=== PATIENT | female | born 1995 | race Caucasian/White ===

== ENCOUNTER 2016-05-01 21:02 | Observation (INO) ==
[2016-05-01 21:38] VITALS: BP 119/70
[2016-05-01 21:50] LABS: Bilirubin,Urine Negative (Negative); Blood,Urine Negative (Negative); Color,Urine Yellow (Yellow); Glucose,Urine (UA) Normal (Normal); Ketones,Urine Negative (Negative); Leukocyte Esterase,Urine Negative (Negative); Nitrite,Urine Negative (Negative); Protein,Urine Negative (Neg-Trace); Specific Gravity,Urine 1.009 (1.010-1.025); Urobilinogen,Urine Normal (Normal)
[2016-05-01 21:52] LABS: Clarity,Urine Clear (Clear)
--- NOTE | 2016-05-01 21:59 | OB/GYN Progress Note ---
Date of Encounter: 05/01/16 Time of Encounter: 21:49 - Assessment and Plan (1) 36 weeks gestation of Current Visit: Yes Status: Acute contractions 8-9mins - nitrazine, 0 cervical dilation recheck for cervical dilation in 1-2h (2) contractions Current Visit: Yes Status: Acute contractions 8-9mins - nitrazine, 0 cervical dilation, denies loss of fluids, mucous plug or vaginal bleeding continuous monitoring pt monitoring recheck for cervical dilation in 1-2h Subjective - Subjective Principal diagnosis: contractions Interval history: 20 yo F 001 at 36.4weeks VAUGHN 05/25/16 Dr. Castillo pt c/o non painful contractions which started Friday afternoon. At that time contractions were infrequent and irregular but now have increased in frequency occurring approximately every 10-12 minutes. pt states that movement is normal. Pt states that she has not had any loss of fluids, vaginal discharge or bleeding. Pt denies headache, change in vision, SOB, CP,palpitation, N/V, LE edema, urinary hesitency, frequency, urgency or burning. O+ Rubella + HepB NR TPallidum - Antepartum ROS: contractions Objective - Vital Signs Vital Signs: Vital Signs Temp Pulse Resp BP 05/01/16 21:30 97.5 F L 72 16 119/70 Intake and Output 05/01/16 05/01/16 05/01/16 07:59 15:59 23:59 Other: Weight 68.2 kg Patient Weight 05/01/16 23:59 Weight 68.2 kg - Exam FHR: auscultation normal Auscultation: bilateral: normal Abdomen: Present: normal appearance, soft, gravid. Absent: distention, tenderness Uterus: Present: normal Cervical dilation: 0
== END 2016-05-01 22:33 | disposition home or self-care (01) ==
LOC: 1NENULAB
PROVIDERS: ADMIT Obstetrics & Gynecology; ATTEND Obstetrics & Gynecology

== ENCOUNTER 2016-05-19 03:04 | Inpatient (IN) ==
[~2016-05-19 03:04] MED LIST: Famotidine 20 MG/2 ML VIAL IVP PRN; Metoclopramide 10 MG/2 ML VIAL IVP PRN; Naloxone 0.4 MG/ML INJ IVP PRN; Oxytocin 20 units/ LR 1000 mL 20 UNIT/1,000 ML BAG IVC SCH
[2016-05-19] MEDS ORDERED: Ringers Solution, Lactated 1,000 ML IVC SCH (03:15)
[2016-05-19 03:34] LABS: Basophils % 0.2 %; Eosinophils # 0.1 K/mcL (0.0-0.6); Eosinophils % 0.6 %; Hematocrit 37.6 % (35.3-44.9); Immature Granulocytes % 0.7 % (0-4); Lymphocytes # 3.1 K/mcL (0.6-4.6); Lymphocytes % 29.2 %; Mean Corpuscular HGB Conc 34.6 g/dL (31.6-35.5); Mean Corpuscular Hemoglobin 31.3 pg (28.0-33.3); Mean Corpuscular Volume 90.6 fL (83.0-100.0); Mean Platelet Volume 10.5 fL (9.4-12.4); Monocytes # 0.6 K/mcL (0.0-1.3); Monocytes % 5.9 %; Neutrophils # 6.7 K/mcL (1.6-8.9); Platelet Count 169 K/mcL (140-400); Red Blood Count 4.15 M/mcL (3.82-4.97); Red Cell Distribution Width 13.2 % (11.5-14.5); Segmented Neutrophils % 63.4 %
[2016-05-19] MEDS ORDERED: Famotidine 20 MG/2 ML VIAL IVP ONE (04:19)
--- NOTE | 2016-05-19 07:36 | Anesthesia Evaluation PreOp ---
Date of Encounter: 05/19/16 Time of Encounter: 07:34 - Past History Planned Operation: la nena Cardiac History: Denies any Significant Hx Pulmonary History: Denies Any Significant HX CIVIL MANAGER History: Denies Any Significant HX Other Medical History: GERD (treated with zantac) Anesthesia History: No Prior Anesthetic Complications (no prior anesthetics, no family history of anesthesia complications) : Yes (39 weeks, ) Alcohol Use: none Drug use: none Medications and Allergies Colace 100 mg PO DAILY 05/01/16 [History] Tablet 1 tab PO DAILY 05/01/16 [History] Ranitidine HCl 05/01/16 [History] Allergies No Known Allergies Allergy (Verified 05/19/16 00:48) - Meds/Allergy Pre-op Review Medications Reviewed: Yes Allergies Reviewed: Yes Beta Blockers on Current Med List: No Anesthesia Results - Labs 05/19/16 03:25 Anesthesia Exam O2 Sat Height 1.68 m Weight 68 kg Height: 66 Weight: 68 - HEENT Pupil (Motor): Pupils equal Mallampati: II Teeth: Normal Oral Opening: Greater than 3 - CIVIL MANAGER LOC: Oriented CIVIL MANAGER Motor: Normal RUE, Normal LUE, Normal RLE, Normal LLE, Normal Face CIVIL MANAGER Sensory: Normal: RUE, LUE, RLE, LLE, Face - Cardiac Rhythm: Regular Murmur: None JVD: No Carotid Bruit: No - Pulmonary Breath Sounds: bilateral Clear Respiratory Effort: Symmetrical Anesthesia Assess/Plan ASA Score: 2 Modified [place] Scale for Level of Consciousness: Cooperative, oriented, and tranquil Anesthetic Plan: Regional Monitoring Plan: Standard Monitors
[2016-05-19] MEDS ORDERED: *HR* FentaNYL (PF) 100 MCG/2 ML VIAL ONE (10:52)
[2016-05-19] MEDS ORDERED: *HR* Ropivacaine/PF 0.2% 10 ML AMPUL ONE (10:53)
[2016-05-19] MEDS ORDERED: Epidural Premix (fent/bupiv) 110 ML EP ONE (10:53)
--- NOTE | 2016-05-19 11:16 | Anesthesia Procedures ---
Date of Encounter: 05/19/16 Time of Encounter: 11:14 Procedures: Anesthesia - Epidural/Spinal Patient ID/Chart reviewed: Yes Patient examined: Yes OB Eval: Gestational age: 39 OB Eval: : 2 OB Eval: Hx Para: 1 OB Eval: Dilated at (cm): 5 OB Eval: Contractions: Non-stressed pattern Consent Obtained: Yes Supplemental Oxygen: None/Room Air Site Prep: Aseptic Technique Patient position: upright Local Anesthetic: Lidocaine 1% Amount of Local Anesthetic used: 3 Touhy Needle Gauge: 18 Touhy Needle Depth (cm): 4 Catheter Depth at Skin (cm): 11 Test Dose (1.5% Lido + Epi): Volume given (mls): 3 Test Dose Result: Negative Loading Dose: Fentanyl (mcg): 100 Loading Dose: Other: 5ml 0.2% ropivicaine, 3ml nss Loading Dose Administered: Thru Touhy Needle Infusion Med: 0.125% Bupivacaine w/ 2 mcg/ml Fentanyl Infusion Rate (mls/hr): [address]: Tegaderm Interspace Used: L2-L3 Loss of Resistance (LUMA): Yes Blood: No CSF: No Paresthesia: No Procedure: Tolerated well. Strict asepsis with good LUMA on first pass. Bolus thru needle , test dose thru catheter. Vitals + FHT's: BP post procedure 132/77 HR 60 RR 20
--- NOTE | 2016-05-19 11:32 | OB Labor Progress Note ---
Date of Encounter: 05/19/16 Time of Encounter: 11:31 Labor Progress Note - Subjective Subjective: Pt. comfortable with epidural. - Cervix Cervix: 4/80%/VTX/0 - Heart Tones Heart Tones: Reactive FHR. + scalp stim. - Wilkinson Wilkinson: contractions every 3-5 minutes. - Interventions Interventions: AROM with large amount of clear fluid. IUPC inserted without difficulty.
[2016-05-19] MEDS ORDERED: Lidocaine 1% 20 ML MDV ONE (12:49)
--- NOTE | 2016-05-19 13:14 | OB/GYN History & Physical ---
Date of Encounter: 05/19/16 Time of Encounter: 13:12 Assessment and Plan (1) 39 weeks gestation of Current visit: Yes Status: Acute (2) Rh negative status during in third trimester Current visit: Yes Status: Acute (3) Active labor at term Current visit: Yes Status: Acute History of Present Illness HPI: Ms. Queen is a 21 year old female with an EDC 05/25/16 at 39 weeks and 1 day with history of contractions since 1730 last pm. Pt. states contractions became more regular and uncomfortable around 2200 hours, and arrived to L&D around 0030 hours. Denies any vaginal bleeding or leakage of fluid. PN course significant for Rh negative, GBS negative, Rubella immune. Pt. originally scheduled for induction 05/22/16. Past Med Surg Social Fam HX - Past Medical History Medical history: no medical history Psychiatric history: no psych history - Past Surgical History Surgical History: other - Social History Smoking Status: Never smoker Smokeless Tobacco Status: No Alcohol use: none Drug use: none - Family History Mother Living Status: Still Living Hx Family Cardiac Disorders: No Hx Family Respiratory Disorders: No Hx Family Cancer: No Hx Family GI Disorders: No Hx Family Endocrine Disorder: No Hx Family Neuromuscular Disorders: No Hx Family Neurologic Disorders: No Hx Family HEENT Disorders: No Hx Family Autoimmune Disorders: No Obstetrical History - Pregnancies : 2 Para: 1 Livin Medications and Allergies Colace 100 mg PO DAILY 05/01/16 [History] Tablet 1 tab PO DAILY 05/01/16 [History] Ranitidine HCl 05/01/16 [History] Allergies No Known Allergies Allergy (Verified 05/19/16 00:48) Exam - Constitutional Constitutional: well developed, well nourished - Neck Neck exam: normal inspection - Abdomen Abdomen: Present: gravid, non tender - Extremities Extremities exam: normal inspection - Cervix Dilation: 4 Effacement: 80 Station: 0 - Comments Comments: Physical exam performed at time of SVE, AROM. Results Result Diagrams: 05/19/16 03:25 All other labs normal. - VTE Reasons for not Prescribing Prophylaxis: Treatment not Indicated - Low risk for VTE
--- NOTE | 2016-05-19 13:20 | OB/GYN Procedure Note ---
Delivery - Delivery Date: 05/19/16 Provider: Katy Mcclure Intrapartum events: none Delivery augmentation: rupture of membranes, pitocin Delivery monitor: external FHT, external uterine, internal uterine Anesthesia: epidural Estimated Blood Loss: 250 - (s) Infant A Delivery Date: 05/19/16 Infant Delivery Time: 12:47 Presentation: vertex Position: JAYANT Route of delivery: Gender: Female Viability: Viable Pounds: 6 Ounces: 8 Weight Gram: 2945 kg at 1 minute: 8 at 5 mins: 9 Shoulder Dystocia: not encountered Specimens collected: cord blood Placenta: spontaneous Cord: 3 umbilical vessels - Repair Episiotomy: none Laceration Description: Labial - Complications Delivery complications: none - Disposition Mom disposition: stable in LDR [place] disposition: stable in LDR - Comments Comments: Patient progressed to complete dilatation and had spontaneous vaginal delivery of a viable female . scores were 8 and 9 at one and 5 minutes respectively, and the infant weighed 6 lbs. 8 oz. The placenta delivered spontaneously and appeared to be intact. Bilateral labial lacerations were present. The left was very superficial however the right was repaired with 4-0 Vicryl suture. All sponge needle and instrument counts reported correct. Estimated blood loss 250 mL. No shoulder dystocia was encountered, no nuchal cord was present.
[2016-05-19] MEDS ORDERED: Oxytocin 20 units/ LR 1000 mL 20 UNIT/1,000 ML BAG IV SCH (15:32)
[2016-05-19] MEDS ORDERED: Oxytocin 20 units/ LR 1000 mL 20 UNIT/1,000 ML BAG IVC ONE (15:32)
[2016-05-19] MEDS ORDERED: Acetaminophen 325 MG TABLET PO PRN (15:32)
[2016-05-19] MEDS ORDERED: Rho Immune Globulin 1,500 UNIT SYRINGE IM PRN (15:32)
[2016-05-19] MEDS: Ibuprofen 600 MG TABLET PO PRN ×2 (17:25→23:38)
[2016-05-20 06:11] LABS: Basophils % 0.3 %; Eosinophils # 0.2 K/mcL (0.0-0.6); Eosinophils % 1.4 %; Hematocrit 33.9 % (35.3-44.9); Hemoglobin 11.5 g/dL (11.5-15.4); Immature Granulocytes % 0.7 % (0-4); Lymphocytes # 2.6 K/mcL (0.6-4.6); Lymphocytes % 23.5 %; Mean Corpuscular HGB Conc 33.9 g/dL (31.6-35.5); Mean Corpuscular Hemoglobin 31.9 pg (28.0-33.3); Mean Corpuscular Volume 94.2 fL (83.0-100.0); Mean Platelet Volume 10.5 fL (9.4-12.4); Monocytes # 0.7 K/mcL (0.0-1.3); Monocytes % 6.4 %; Neutrophils # 7.5 K/mcL (1.6-8.9); Platelet Count 140 K/mcL (140-400); Red Cell Distribution Width 13.3 % (11.5-14.5); Segmented Neutrophils % 67.7 %
[2016-05-20] MEDS: Ibuprofen 600 MG TABLET PO PRN (08:01)
[2016-05-20 08:31] VITALS: BP 113/71
--- NOTE | 2016-05-20 08:36 | Discharge Summary ---
Date of Encounter: 05/20/16 Time of Encounter: 08:33 - Discharge Diagnosis (1) Vaginal delivery Priority: Primary Status: Acute Comments: Pt states feels well and would like to be discharged today. Meeting all PP milestones. - Discharge Medications Prescriptions: Ibuprofen [Motrin] 600 mg PO Q6HR PRN #60 tablet PRN Reason: Cramping Breast Pump [BREAST PUMP] 1 each .ROUTE AD #1 each Docusate [Colace] 100 mg PO BID #60 capsule Home Medications: Tablet 1 tab PO DAILY 05/01/16 [History] Ranitidine HCl 05/01/16 [History] Breast Pump [BREAST PUMP] 1 each .ROUTE AD #1 each 05/20/16 [Rx] Docusate [Colace] 100 mg PO BID #60 capsule 05/20/16 [Rx] Ibuprofen [Motrin] 600 mg PO Q6HR PRN #60 tablet 05/20/16 [Rx] Vit/FA 1 each PO DAILY tablet 05/20/16 [Rx] Allergies/Adverse Reactions: Allergies No Known Allergies Allergy (Verified 05/19/16 00:48) Data Procedures and tests throughout hospitalization: Laboratory Tests 05/19/16 05/19/16 05/20/16 03:25 13:26 05:39 WBC 10.6 11.1 RBC 4.15 3.60 L Hgb 13.0 11.5 D Hct 37.6 33.9 L MCV 90.6 94.2 MCH 31.3 31.9 MCHC 34.6 33.9 RDW 13.2 13.3 Plt Count 169 140 MPV 10.5 10.5 Immature Gran % 0.7 0.7 Seg Neutrophils % 63.4 67.7 Lymphocytes % 29.2 23.5 Monocytes % 5.9 6.4 Eosinophils % 0.6 1.4 Basophils % 0.2 0.3 Neutrophils # 6.7 7.5 Lymphocytes # 3.1 2.6 Monocytes # 0.6 0.7 Eosinophils # 0.1 0.2 Basophils # 0.0 0.0 Screen NEGATIVE Baby's Blood Type A RH POSITIVE Mother's Blood Type O RH NEGATIVE Rhogam Indicated YES Rhogam Req for Mother 1 Labs on day of discharge: Labs from last 24 hours 05/20/16 05/19/16 05:39 13:26 WBC 11.1 RBC 3.60 L Hgb 11.5 D Hct 33.9 L MCV 94.2 MCH 31.9 MCHC 33.9 RDW 13.3 Plt Count 140 MPV 10.5 Immature Gran % 0.7 Seg Neutrophils % 67.7 Lymphocytes % 23.5 Monocytes % 6.4 Eosinophils % 1.4 Basophils % 0.3 Neutrophils # 7.5 Lymphocytes # 2.6 Monocytes # 0.7 Eosinophils # 0.2 Basophils # 0.0 Screen NEGATIVE Baby's Blood Type A RH POSITIVE Mother's Blood Type O RH NEGATIVE Rhogam Indicated YES Rhogam Req for Mother 1 Date of admission: 05/19/16 03:04 Consults: 05/19/16 15:32 Consult to Nurse Private Duty [CONS] Routine Comment: Vaginal delivery, consult needed Discharging clinician: Paulina Bates Anticipated date of discharge: 05/20/16 - Patient Status Disposition: Home, Self-Care Condition: Good Functional capacity at discharge: independent ambulation Overall status at discharge: patient is back to baseline - Discharge Instructions Follow Up With: Catrachita Castillo DO [Partnered Physician] - (June 20, 2016 @ 2:30 pm) - Diet and Activity Activity: resume usual activities as tolerated Diet: regular diet Hospital Course Reason for admission: active labor Delivery: Episiotomy: none Laceration: other (labial) complications: none Discharge diagnosis: IUP at term delivered [place] baby: female Hospital course: Delivery - Delivery Date: 05/19/16 Provider: Katy Mcclure Intrapartum events: none Delivery augmentation: rupture of membranes, pitocin Delivery monitor: external FHT, external uterine, internal uterine Anesthesia: epidural Estimated Blood Loss: 250 - (s) Infant A Infant Delivery Date: 05/19/16 Delivery Time: 12:47 Presentation: vertex Position: JAYANT Route of delivery: Gender: Female Viability: Viable Pounds: 6 Ounces: 8 Weight Gram: 2945 kg at 1 minute: 8 at 5 mins: 9 Shoulder Dystocia: not encountered Specimens collected: cord blood Placenta: spontaneous Cord: 3 umbilical vessels - Repair Episiotomy: none Laceration Description: Labial - Complications Delivery complications: none - Disposition Mom disposition: stable in and appropriate for discharge - Comments Time Attestation: Total time spent providing and/or coordinating discharge services: Time Spent: Less than 30 minutes Exam - Constitutional Vitals: Temp Pulse Resp BP Pulse Ox 97.6 F 71 16 113/71 97 05/20/16 08:27 05/20/16 08:27 05/20/16 08:27 05/20/16 08:27 05/20/16 08:27 General appearance IM: A&O X 3, no acute distress - Respiratory Respiratory exam: Present: CTAB - Cardiovascular Cardiovascular exam IM: Present: RRR, +S1, +S2 - GI/Abdominal GI/Abdominal exam IM: normal bowel sounds, soft - Uterine Tone: Firm - Extremities Exam Extremities exam IM: Present: normal inspection - Neurological Exam Neurological exam: alert, normal gait, oriented X3 - Psychiatric Additional comments: reports good mood.
[2016-05-20] MEDS ORDERED: Prenatal Vit/FA 1 EACH TABLET PO SCH (09:00)
== END 2016-05-20 14:37 | disposition home or self-care (01) | DRG 775 ==
LOC: 1NENULAB → 1NENUOBS 15:30
PROVIDERS: ADMIT Obstetrics & Gynecology; ATTEND Obstetrics & Gynecology

== ENCOUNTER 2019-03-27 05:30 | Inpatient (IN) ==
[2019-03-27] MEDS ORDERED: Ringers Solution, Lactated 1,000 ML IVC ONE (06:05)
[2019-03-27 06:18] LABS: Basophils % 0.3 %; Eosinophils # 0.1 K/mcL (0.0-0.6); Hematocrit 33.7 % (35.3-44.9); Hemoglobin 12.3 g/dL (11.5-15.4); Immature Granulocytes % 0.3 % (0-4); Lymphocytes # 1.7 K/mcL (0.6-4.6); Mean Corpuscular HGB Conc 36.5 g/dL (31.6-35.5); Mean Corpuscular Volume 84.9 fL (83.0-100.0); Mean Platelet Volume 9.5 fL (9.4-12.4); Monocytes # 0.4 K/mcL (0.0-1.3); Monocytes % 6.5 %; Neutrophils # 3.8 K/mcL (1.6-8.9); Platelet Count 195 K/mcL (140-400); Red Blood Count 3.97 M/mcL (3.82-4.97); Red Cell Distribution Width 11.8 % (11.5-14.5); Segmented Neutrophils % 62.9 %
[2019-03-27] MEDS ORDERED: *HR* FentaNYL (PF) 100 MCG/2 ML VIAL ONE (07:25)
[2019-03-27] MEDS ORDERED: Dexamethasone 4 MG/ML VIAL ONE (07:25)
[2019-03-27] MEDS ORDERED: *HR* Midazolam HCl 2 MG/2 ML VIAL ONE (07:25)
[2019-03-27] MEDS ORDERED: *HR* Propofol 200 MG/20 ML VIAL IVP ONE (07:25)
[2019-03-27] MEDS ORDERED: Ondansetron 4 MG/2 ML VIAL ONE (07:25)
[2019-03-27] MEDS ORDERED: Lidocaine -MPF 2% 5 ML VIAL ONE (07:25)
[2019-03-27] MEDS ORDERED: Ondansetron 4 MG/2 ML VIAL IVP ONE (07:55)
[2019-03-27] MEDS ORDERED: *HR* HYDROmorphone (PF) 1 MG/ML SYRINGE IVP PRN (07:55)
[2019-03-27] MEDS ORDERED: *HR* OxyCODONE Immed Rel 5 MG TABLET PO PRN (07:55)
[2019-03-27] MEDS ORDERED: Doxycycline 100 MG in 0.9 % Sodium Chloride Mini Bag 100 ML IVPB ONE (07:58)
[2019-03-27] MEDS ORDERED: Ringers Solution, Lactated 1,000 ML IVC SCH (08:00)
[2019-03-27] MEDS ORDERED: Ringers Solution, Lactated 1,000 ML ONE (08:12)
[2019-03-27] MEDS ORDERED: Lidocaine 1% 20 ML MDV ONE (08:28)
[2019-03-27] MEDS ORDERED: Ibuprofen 600 MG TABLET PO PRN (09:17)
[2019-03-27] MEDS ORDERED: Rho Immune Globulin 1,500 UNIT SYRINGE IM ONE (10:25)
[2019-03-27 11:46] VITALS: BP 95/52
== END 2019-03-27 11:30 | disposition home or self-care (01) | DRG 819 ==
LOC: 1NENULAB 05:31
PROVIDERS: ADMIT Obstetrics & Gynecology; ATTEND Obstetrics & Gynecology